=== PATIENT | male | born 1960 | race African-American/Black ===

== ENCOUNTER 2019-05-22 15:59 | Emergency (ER) | payer OTHER ==
[~2019-05-22] VITALS: Ht 180.3 cm; Wt 122.0 kg
[2019-05-22] MEDS ORDERED: NITROGLYCERIN SUBLINGUAL 0.4 MG BOTTLE OF 25. SL PRN (16:15)
[2019-05-22] MEDS ORDERED: MORPHINE SULFATE 2 MG/ML VIAL. IV/SQ PRN (16:15)
[2019-05-22] MEDS ORDERED: ASPIRIN 325 MG TABLET PO ONE (16:15)
--- NOTE | 2019-05-22 16:18 | PHYS DOC ---
Past Medical History Past Medical History: No Pertinent History (JENNIFER JACINTO APRN) Past Surgical History: No Surgical History (JENNIFER JACINTO APRN) Alcohol Use: Occasionally Drug Use: None (JENNIFER JACINTO APRN) Adult General Chief Complaint Chief Complaint: CHEST PAIN HPI HPI Patient is a 58 year old male with no significant medical history who presents today complaining of 2 out of 10 pressure-like chest pain that began this morning. Patient states symptoms are worse when he is sitting. Denies pain radiating. Denies any fever coughing or congestion. He states is not on any medications. He states he went to the [facility] station and they evaluated him and requested him to come to the ED to be evaluated. (JENNIFER JACINTO APRN) Review of Systems Review of Systems Constitutional: Denies fever or chills [] Eyes: Denies change in visual acuity, redness, or eye pain [] HENT: Denies nasal congestion or sore throat [] Respiratory: Denies cough or shortness of breath [] Cardiovascular: Reports chest pressure GI: Denies abdominal pain, nausea, vomiting, bloody stools or diarrhea [] : Denies dysuria or hematuria [] Musculoskeletal: Denies back pain or joint pain [] Integument: Denies rash or skin lesions [] Neurologic: Denies headache, focal weakness or sensory changes [] All other systems were reviewed and found to be within normal limits, except as documented in this note. (JENNIFER JACINTO APRN) Current Medications Current Medications Current Medications Medications (Trade) Dose Ordered Sig/Margoth Start Time Stop Time Status Last Admin Dose Admin Aspirin (Nasima Aspirin) 325 mg 1X ONCE 05/22/19 16:15 05/22/19 16:16 DC 05/22/19 16:26 325 MG Morphine Sulfate (Morphine Sulfate) 2 mg PRN Q15MIN PRN 05/22/19 16:15 05/22/19 19:34 DC 05/22/19 16:26 2 MG Nitroglycerin (Nitrostat) 0.4 mg PRN Q5MIN PRN 05/22/19 16:15 05/22/19 19:34 DC 05/22/19 16:26 0.4 MG (HAYDEN KOVACS MD) Allergies Allergies Allergies Coded Allergies Type Severity Reaction Last Updated Verified No Known Drug Allergies 10/16/15 No (HAYDEN KOVACS MD) Physical Exam Physical Exam Constitutional: Well developed, well nourished, no acute distress, non-toxic appearance. [] HENT: Normocephalic, atraumatic, bilateral external ears normal, oropharynx moist, no oral exudates, nose normal. [] Eyes: PERRLA, EOMI, conjunctiva normal, no discharge. [] Neck: Normal range of motion, no tenderness, supple, no stridor. [] Cardiovascular:Heart rate regular rhythm, no murmur [] Lungs & Thorax: Bilateral breath sounds clear to auscultation [] Abdomen: Bowel sounds normal, soft, no tenderness, no masses, no pulsatile masses. [] Skin: Warm, dry, no erythema, no rash. [] Back: No tenderness, no CVA tenderness. [] Extremities: No tenderness, no cyanosis, no clubbing, ROM intact, no edema. [] Neurologic: Alert and oriented X 3, normal motor function, normal sensory function, no focal deficits noted. [] Psychologic: Affect normal, judgement normal, mood normal. [] (JENNIFER JACINTO APRN) Current Patient Data Vital Signs Vital Signs Date Time Temp Pulse Resp B/P (MAP) Pulse Ox O2 Delivery O2 Flow Rate FiO2 05/22/19 19:07 79 17 119/49 (72) 100 Room Air 05/22/19 16:00 98.4 98.4 (HAYDEN KOVACS MD) Lab Values Laboratory Tests Test 05/22/19 16:15 White Blood Count 6.2 x10^3/uL (4.0-11.0) Red Blood Count 4.57 x10^6/uL (4.30-5.70) Hemoglobin 14.4 g/dL (13.0-17.5) Hematocrit 41.2 % (39.0-53.0) Mean Corpuscular Volume 90 fL (79-100) Mean Corpuscular Hemoglobin 32 pg (25-35) Mean Corpuscular Hemoglobin Concent 35 g/dL (31-37) Red Cell Distribution Width 13.5 % (11.5-14.5) Platelet Count 268 x10^3/uL (140-400) Neutrophils (%) (Auto) 62 % (31-73) Lymphocytes (%) (Auto) 29 % (24-48) Monocytes (%) (Auto) 8 % (0-9) Eosinophils (%) (Auto) 1 % (0-3) Basophils (%) (Auto) 0 % (0-3) Neutrophils # (Auto) 3.8 x10^3/uL (1.8-7.7) Lymphocytes # (Auto) 1.8 x10^3/uL (1.0-4.8) Monocytes # (Auto) 0.5 x10^3/uL (0.0-1.1) Eosinophils # (Auto) 0.0 x10^3/uL (0.0-0.7) Basophils # (Auto) 0.0 x10^3/uL (0.0-0.2) Prothrombin Time 12.6 SEC (11.7-14.0) Prothrombin Time INR 1.0 (0.8-1.1) Sodium Level 139 mmol/L (136-145) Potassium Level 4.0 mmol/L (3.5-5.1) Chloride Level 104 mmol/L (98-107) Carbon Dioxide Level 26 mmol/L (21-32) Anion Gap 9 (6-14) Blood Urea Nitrogen 12 mg/dL (8-26) Creatinine 1.1 mg/dL (0.7-1.3) Estimated GFR (Cockcroft-Gault) 83.8 BUN/Creatinine Ratio 11 (6-20) Glucose Level 101 mg/dL (70-99) H Calcium Level 9.0 mg/dL (8.5-10.1) Magnesium Level 2.0 mg/dL (1.8-2.4) Total Bilirubin 0.3 mg/dL (0.2-1.0) Aspartate Amino Transferase (AST) 27 U/L (15-37) Alanine Aminotransferase (ALT) 49 U/L (16-63) Alkaline Phosphatase 97 U/L (46-116) Creatine Kinase 314 U/L (39-308) H Creatine Kinase MB (Mass) 1.8 ng/mL (0.0-3.6) Creatine Kinase MB Relative Index 0.6 % (0-4) Troponin I Quantitative < 0.017 ng/mL (0.000-0.055) VG-Rjn-X-Type Natriuretic Peptide 9 pg/mL (0-124) Total Protein 7.8 g/dL (6.4-8.2) Albumin 3.7 g/dL (3.4-5.0) Albumin/Globulin Ratio 0.9 (1.0-1.7) L Lipase 157 U/L (73-393) Thyroid Stimulating Hormone (TSH) 1.113 uIU/mL (0.358-3.74) Laboratory Tests 05/22/19 16:15 Laboratory Tests 05/22/19 16:15 (HAYDEN KOVACS MD) Lab Values Laboratory Tests Test 05/22/19 16:15 White Blood Count 6.2 x10^3/uL (4.0-11.0) Red Blood Count 4.57 x10^6/uL (4.30-5.70) Hemoglobin 14.4 g/dL (13.0-17.5) Hematocrit 41.2 % (39.0-53.0) Mean Corpuscular Volume 90 fL (79-100) Mean Corpuscular Hemoglobin 32 pg (25-35) Mean Corpuscular Hemoglobin Concent 35 g/dL (31-37) Red Cell Distribution Width 13.5 % (11.5-14.5) Platelet Count 268 x10^3/uL (140-400) Neutrophils (%) (Auto) 62 % (31-73) Lymphocytes (%) (Auto) 29 % (24-48) Monocytes (%) (Auto) 8 % (0-9) Eosinophils (%) (Auto) 1 % (0-3) Basophils (%) (Auto) 0 % (0-3) Neutrophils # (Auto) 3.8 x10^3/uL (1.8-7.7) Lymphocytes # (Auto) 1.8 x10^3/uL (1.0-4.8) Monocytes # (Auto) 0.5 x10^3/uL (0.0-1.1) Eosinophils # (Auto) 0.0 x10^3/uL (0.0-0.7) Basophils # (Auto) 0.0 x10^3/uL (0.0-0.2) Prothrombin Time 12.6 SEC (11.7-14.0) Prothrombin Time INR 1.0 (0.8-1.1) Sodium Level 139 mmol/L (136-145) Potassium Level 4.0 mmol/L (3.5-5.1) Chloride Level 104 mmol/L (98-107) Carbon Dioxide Level 26 mmol/L (21-32) Anion Gap 9 (6-14) Blood Urea Nitrogen 12 mg/dL (8-26) Creatinine 1.1 mg/dL (0.7-1.3) Estimated GFR (Cockcroft-Gault) 83.8 BUN/Creatinine Ratio 11 (6-20) Glucose Level 101 mg/dL (70-99) H Calcium Level 9.0 mg/dL (8.5-10.1) Magnesium Level 2.0 mg/dL (1.8-2.4) Total Bilirubin 0.3 mg/dL (0.2-1.0) Aspartate Amino Transferase (AST) 27 U/L (15-37) Alanine Aminotransferase (ALT) 49 U/L (16-63) Alkaline Phosphatase 97 U/L (46-116) Creatine Kinase 314 U/L (39-308) H Creatine Kinase MB (Mass) 1.8 ng/mL (0.0-3.6) Creatine Kinase MB Relative Index 0.6 % (0-4) Troponin I Quantitative < 0.017 ng/mL (0.000-0.055) SH-Ohi-B-Type Natriuretic Peptide 9 pg/mL (0-124) Total Protein 7.8 g/dL (6.4-8.2) Albumin 3.7 g/dL (3.4-5.0) Albumin/Globulin Ratio 0.9 (1.0-1.7) L Lipase 157 U/L (73-393) Thyroid Stimulating Hormone (TSH) 1.113 uIU/mL (0.358-3.74) Laboratory Tests 05/22/19 16:15 Laboratory Tests 05/22/19 16:15 (JENNIFER JACINTO APRN) EKG EKG [address] Rivera sinus rhythm HR 80 no STEMI[] (JENNIFER JACINTO APRN) Radiology/Procedures Radiology/Procedures []PROCEDURE: PORTABLE CHEST 1V PORTABLE CHEST 1V History: Chest pain. Cough. Comparison: October 16, 2015 Findings: No consolidation or pleural effusion. Normal heart size. Impression: 1. No acute cardiopulmonary process. Electronically signed by: Moi Green DO (05/22/2019 5:35 PM) [facility] DICTATED and SIGNED BY: MOI GREEN DO DATE: 05/22/19 1735 (JENNIFER JACINTO APRN) Course & Med Decision Making Course & Med Decision Making Pertinent Labs and Imaging studies reviewed. (See chart for details) This is a 58-year-old male patient presenting to the ED today with pressure-like chest pain that began this morning. EKG is negative. Labs were negative including cardiac lab work. Vitals are stable See Heart score David Patient is interested in being discharged to home, he states he would like to follow-up in the clinic. I spoke with Dr. Gunter his PCP, he requested patient follow-up in the clinic (JENNIFER JACINTO APRN) Dragon Disclaimer Dragon Disclaimer This electronic medical record was generated, in whole or in part, using a voice recognition dictation system. (JENNIFER JACINTO APRN) The HEART Score for CP Pts HEART Score for Chest Pain: HEART Score for Chest Pain Response (Comments) Value History Slighlty/Non-Suspicious 0 ECG Normal 0 Age >45 - < 65 1 Risk Factors No Risk Factors 0 Troponin < Normal Limit 0 Total 1 Risk Factors: Risk Factors: DM, Current or recent (<one month) smoker, HTN, HLP, family history of CAD, obesity. Risk Scores: Score 0 - 3: 2.5% MACE over next 6 weeks - Discharge Home Score 4 - 6: 20.3% MACE over next 6 weeks - Admit for Clinical Observation Score 7 - 10: 72.7% MACE over next 6 weeks - Early Invasive Strategies (JENNIFER JACINTO APRN) Departure Departure Impression: Primary Impression: Chest pain Disposition: HOME, SELF-CARE Condition: STABLE Referrals: CARRIE GUNTER MD (PCP) follow up in the course of this week Patient Instructions: Chest Pain (Nonspecific), [id number]-[id number] Additional Instructions: You were evaluated in the emergency room for chest pain. Your work up was negative for any acute findings. Follow-up with your own doctor in the course of this week. Problem Qualifiers Primary Impression: Chest pain Chest pain type: unspecified Qualified Codes: R07.9 - Chest pain, unspecified JENNIFER JACINTO APRN May 22, 2019 16:18 HAYDEN KOVACS MD May 22, 2019 22:23
[2019-05-22 16:32] LABS: BASO % 0 % (0-3); EOS % 1 % (0-3); HEMATOCRIT 41.2 % (39.0-53.0); HEMOGLOBIN 14.4 g/dL (13.0-17.5); LYMPH # 1.8 x10^3/uL (1.0-4.8); LYMPH % 29 % (24-48); MEAN CORPUSCULAR HEMOGLOBIN 32 pg (25-35); MEAN CORPUSCULAR HGB CONC 35 g/dL (31-37); MEAN CORPUSCULAR VOLUME 90 fL (79-100); MONO # 0.5 x10^3/uL (0.0-1.1); MONO % 8 % (0-9); NEUT # 3.8 x10^3/uL (1.8-7.7); NEUT % 62 % (31-73); PLATELET COUNT 268 x10^3/uL (140-400); RED BLOOD COUNT 4.57 x10^6/uL (4.30-5.70); RED CELL DISTRIBUTION WIDTH 13.5 % (11.5-14.5); WHITE BLOOD COUNT 6.2 x10^3/uL (4.0-11.0)
[2019-05-22 16:40] LABS: PROTHROMBIN TIME PATIENT 12.6 SEC (11.7-14.0)
[2019-05-22 17:01] LABS: CREATININE 1.1 mg/dL (0.7-1.3); GFR 83.8
[2019-05-22 17:08] LABS: ALBUMIN 3.7 g/dL (3.4-5.0); ALBUMIN/GLOBULIN RATIO 0.9 (1.0-1.7); TOTAL BILIRUBIN 0.3 mg/dL (0.2-1.0); TOTAL PROTEIN 7.8 g/dL (6.4-8.2)
--- NOTE | 2019-05-22 17:37 | RAD ---
PORTABLE CHEST 1V History: Chest pain. Cough. Comparison: October 16, 2015 Findings: No consolidation or pleural effusion. Normal heart size. Impression: 1. No acute cardiopulmonary process. Electronically signed by: Moi Green DO (05/22/2019 5:35 PM) [facility]
[2019-05-22 19:07] VITALS: BP 119/49
--- NOTE | 2019-05-23 05:41 | EKG ---
[facility] [address] [place] [address] Test Date: 2019-05-22 Test Time: 16:04:14 Pat Name: MIRANDA IRWIN Department: Room: Gender: M [employer] Operator: : [id number] Requested By: JENNIFER JACINTO Order Number: [id number] Reading MD: Moses Persaud Measurements Intervals [place] Rate: 80 P: 48 WI: 164 QRS: -16 QRSD: 84 T: 6 QT: 356 QTc: 414 Interpretive Statements SINUS RHYTHM ATRIAL PREMATURE COMPLEX(ES) Electronically Signed On 05-26-2019 9:57:44 CDT by Moses Persaud
== END 2019-05-22 19:32 | disposition home or self-care (01) ==
LOC: ER 15:59
DX: R07.89 Other chest pain (principal)
CPT/HCPCS: 36415; 71045; 80053; 82553; 83690; 83735; 83880; 84443; 84484; 85025; 85610; 93005; 96374; 99285; J2270